=== PATIENT | male | born 1955 | race American Indian/Alaskan Native ===

== ENCOUNTER 2018-10-19 08:00 | Emergency (ER) | payer BC, OTHER ==
[2018-10-19] MEDS ORDERED: CATAPRES PO ONE (09:35)
[2018-10-19] MEDS ORDERED: TYLENOL #3 PO ONE (09:35)
--- NOTE | 2018-10-19 09:39 | Emergency Department Report ---
ED General Adult HPI - General Chief complaint: High BP Stated complaint: HIGH BP Time Seen by Provider: 10/19/18 09:05 Source: patient Mode of arrival: Ambulatory Limitations: No Limitations - History of Present Illness Initial comments: 63-year-old male presents to the ED with complaint of elevated blood pressure. Patient reports he has a history of pulsatile tinnitus 4 years. Patient states over the last year, he has began to develop headaches associated with it. Patient states the headaches are normally right-sided and radiates somewhat down the right side of his neck. Patient states his physician and previously had him on amlodipine which was controlling his blood pressure, but was exacerbating his symptoms of pulsatile tinnitus. So, patient was taken off amlodipine and started on metoprolol, which he began 3 days ago. The patient states he awoke this morning with his usual headache. States he took his blood pressure systolic BP was in the 200s so he decided to come to the ER. Patient denied taking any medication prior to ED arrival. Patient states his current headache is the same as it usually is, no change in character, intensity, or location. Patient states he has undergone extensive testing for his condition, including CTs and MRIs. The patient states he has lost some hearing of the right ear as a result of this pulsatile tinnitus. PCP: Dr Ramires -: This morning Location: head Radiation: neck Severity scale (0 -10): 7 Quality: aching Consistency: constant Improves with: none Worsens with: none Associated Symptoms: denies: chest pain, fever/chills, nausea/vomiting Treatments Prior to Arrival: none - Related Data Allergies Allergy/AdvReac Type Severity Reaction Status Date / Time amoxicillin Allergy Unknown Verified 10/19/18 08:01 caffeine AdvReac Unknown Verified 10/19/18 08:01 ED Review of Systems ROS: Stated complaint: HIGH BP Other details as noted in HPI Comment: All other systems reviewed and negative Constitutional: denies: fever ENT: other (reports tinnitus) Respiratory: denies: shortness of breath Cardiovascular: palpitations. denies: chest pain Gastrointestinal: denies: nausea, vomiting Neurological: headache. denies: weakness, paresthesias ED Past Medical Hx - Past Medical History Hx Headaches / Migraines: Yes - Social History Smoking Status: Never Smoker Substance Use Type: None ED Physical Exam - General Limitations: No Limitations General appearance: alert, in no apparent distress - Head Head exam: Present: atraumatic, normocephalic - Eye Eye exam: Present: normal appearance - ENT ENT exam: Present: mucous membranes moist - Neck Neck exam: Present: normal inspection. Absent: meningismus - Respiratory Respiratory exam: Present: normal lung sounds bilaterally. Absent: respiratory distress - Cardiovascular Cardiovascular Exam: Present: regular rate, normal rhythm - GI/Abdominal GI/Abdominal exam: Present: soft. Absent: distended - Extremities Exam Extremities exam: Present: normal inspection - Neurological Exam Neurological exam: Present: alert, oriented X3. Absent: motor sensory deficit - Psychiatric Psychiatric exam: Present: normal affect, normal mood - Skin Skin exam: Present: warm, dry, intact, normal color ED Course Vital Signs 10/19/18 10/19/18 10/19/18 08:01 09:37 09:55 Temperature 97.6 F Pulse Rate 78 60 Respiratory 16 Rate Blood Pressure 188/105 172/83 Blood Pressure 183/80 [Left] O2 Sat by Pulse 99 Oximetry 10/19/18 11:03 Temperature Pulse Rate 58 L Respiratory Rate Blood Pressure Blood Pressure 117/68 [Left] O2 Sat by Pulse Oximetry ED Medical Decision Making - Medical Decision Making Headache and BP improved w/ tylenol #3 (requested by patient) and clonidine. Advised follow-up w/ PCP. Will discharge at this time. Return precautions given. - Differential Diagnosis HTN, chronic HOWELL exacerbation Critical care attestation.: If time is entered above; I have spent that time in minutes in the direct care of this critically ill patient, excluding procedure time. ED Disposition Clinical Impression: Essential hypertension, Chronic headache disorder Disposition: -01 TO HOME OR SELFCARE Is pt being admited?: No Condition: Stable Instructions: Hypertension (ED) Referrals: PRIMARY CARE, [Referring] - 3-5 Days Time of Disposition: 11:05
[2018-10-19 11:03] VITALS: BP 117/68
== END 2018-10-19 11:35 | disposition home or self-care (01) ==
LOC: ED 08:00
DX: I10 Essential (primary) hypertension (principal); G89.29 Other chronic pain; R51 Headache; Z88.1 Allergy status to other antibiotic agents; Z91.09 Other allergy status, other than to drugs and biological substances
CPT/HCPCS: 99282

== ENCOUNTER 2019-08-08 09:08 | Outpatient (CLI) | payer MEDICARE, BC ==
[2019-08-08 10:09] LABS: Blood Urea Nitrogen 24 mg/dL (9-20)
--- NOTE | 2019-08-08 14:26 | Magnetic Resonance Report ---
MRI BRAIN WITHOUT CONTRAST, IAC PROTOCOL INDICATION / CLINICAL INFORMATION: H91.09 HEARING LOSS/H93.19 TINNITUS. TECHNIQUE: Multiplanar, multisequence MR images of the brain were obtained. The institution's "Internal Auditory Canal/Posterior Fossa" MRI protocol was used. Contrast dose report: MultiHance: 17 mL administered intravenously. COMPARISON: None available. FINDINGS: CP ANGLE/INTERNAL AUDITORY CANALS: No abnormal cerebellopontine angle mass, enhancement or signal int ensity. Note is made of a prominent vascular loop arising from anterior inferior cerebellar artery wh ich is interposed between the right 7th and 8th cranial nerves in the right cerebellar pontine angle cistern. This is an infrequent finding. LABYRINTHINE STRUCTURES: Fluid-filled structures of the bony labyrinth have an unremarkable appearanc e bilaterally. VESTIBULAR AQUEDUCT: No abnormalities are seen associated with cochlear aqueducts. MASTOID AERATION: No significant abnormality. BRAIN / INTRACRANIAL CONTENTS: No acute ischemia, acute hemorrhage, mass effect, midline shift, or hy drocephalus. No chronic infarct or atrophy. No significant white matter abnormality. CRANIOCERVICAL JUNCTION: No significant abnormality. VASCULAR FLOW-VOIDS: No significant abnormality. ORBITS: No significant abnormality of visualized orbits. PARANASAL SINUSES: No significant abnormality of visualized sinuses and mastoid air cells. Magnetic s usceptibility artifact originating in the oral cavity limits evaluation of the right maxillary sinus. ADDITIONAL FINDINGS: None. IMPRESSION: 1. Prominent vascular loop is identified interposed between the cisternal segments of the right 7th a nd 8th cranial nerves. 2. No additional abnormalities are identified on MRI brain and internal auditory canals without and w ith contrast. Signer Name: Bola Bronson MD Signed: 08/08/2019 2:22 PM Workstation Name: [id number]
== END 2019-08-08 09:09 | disposition home or self-care (01) ==
LOC: MRI 09:08
PROVIDERS: ATTEND Otolaryngology
DX: H91.90 Unspecified hearing loss, unspecified ear (principal); H93.19 Tinnitus, unspecified ear
CPT/HCPCS: 36415; 70553; 82565; 84520; A9577

== ENCOUNTER 2019-08-19 17:57 | Emergency (ER) | payer MEDICARE, BC ==
[2019-08-19 19:35] VITALS: BP 146/74
--- NOTE | 2019-08-19 21:19 | Event Note ---
ED Screening Note ED Screening Note: headache couple days states he has generalized weakness and fatigue chronic tinnitus for 4-5 years, has seen an ENT for this and had CT and MRI performed no fever no n/v no new vision changes no unilateral weakness no numbness This initial assessment/diagnostic orders/clinical plan/treatment(s) is/are vega bject to change based on patients health status, clinical progression and re- assessment by fellow clinical providers in the ED. Further treatment and workup at subsequent clinical providers discretion. Patient/guardian urged not to elope from the ED as their condition may be serious if not clinically assessed and managed. Initial orders include: labs
[2019-08-19 22:07] LABS: Hematocrit 37.2 % (35.5-45.6); Hemoglobin 12.4 gm/dl (11.8-15.2); Mean Corpuscular HGB Conc 33 % (32-34); Mean Corpuscular Volume 82 fl (84-94); Platelet Count 212 K/mm3 (140-440); Red Blood Count 4.56 M/mm3 (3.65-5.03); Red Cell Distribution Width 13.3 % (13.2-15.2)
[2019-08-19 22:30] LABS: BUN/Creatinine Ratio 18; Blood Urea Nitrogen 24 mg/dL (9-20); Calcium 9.2 mg/dL (8.4-10.2); Hemolysis Index 5
[2019-08-19 22:53] LABS: Basophils % (Manual) 0 % (0.0-1.8); RBC Morphology Normal; Total Cells Counted 100
== END 2019-08-20 01:04 | disposition left against medical advice (07) ==
LOC: ED 17:57
DX: M79.18 Myalgia, other site (principal); Z53.21 Procedure and treatment not carried out due to patient leaving prior to being seen by health care provider
CPT/HCPCS: 36415; 80048; 85007; 85025